=== PATIENT | female | born 1985 | race Two or more races ===

== ENCOUNTER 2021-08-09 21:42 | Inpatient (IN) | payer MEDICAID ==
[~2021-08-09] VITALS: Ht 154.9 cm; Wt 69.4 kg
[2021-08-09] MEDS ORDERED: IOHEXOL-350 100 ML BOTTLE ONE (23:18)
[2021-08-09 23:19] LABS: CLARITY URINE CLEAR (CLEAR); COLOR URINE YELLOW (YELLOW); KETONES URINE 2+ (NEGATIVE); LEUKOCYTE ESTERASE URINE NEGATIVE (NEGATIVE); NITRITE URINE NEGATIVE (NEGATIVE); OCCULT BLOOD URINE 1+ (NEGATIVE); PH URINE 6.5 (4.5-8.0); PROTEIN URINE NEGATIVE (NEGATIVE); SPECIFIC GRAVITY URINE 1.007 (1.005-1.030); UROBILINOGEN URINE 0.2 E.U./dL (0.2-1.0)
[2021-08-09 23:20] LABS: BASOPHILS % 0.1 % (0.0-2.0); HEMATOCRIT. 33.7 % (36.0-48.0); HEMOGLOBIN. 11.6 g/dL (12.0-16.0); LYMPHOCYTES % 16.5 % (20.0-50.0); MEAN CORPUSCULAR HEMOGLOBIN 31.4 pg (28.0-32.0); MEAN CORPUSCULAR VOLUME 91.3 fL (81.0-99.0); MONOCYTES % 5.8 % (2.0-8.0); NEUTROPHILS % 76.6 % (40.0-76.0); PLATELET 232 x1000/uL (130-400); RED BLOOD CELL COUNT 3.69 mill/uL (4.2-5.4); RED CELL DISTRIBUTION WIDTH 12.4 % (11.6-14.6)
[2021-08-09 23:27] LABS: CHLORIDE 105 mEq/L (98-107)
[2021-08-09] MEDS ORDERED: DEXAMETHASONE 10 MG/ML VIAL IV ONE (23:30)
[2021-08-09] MEDS ORDERED: ASPIRIN 325MG TABLET PO ONE (23:30)
[2021-08-09] MEDS ORDERED: DIPHENHYDRAMINE 25MG CAPSULE PO ONE (23:30)
[2021-08-09] MEDS ORDERED: KETOROLAC 15MG/ML VIAL IV ONE (23:30)
[2021-08-09] MEDS ORDERED: PROCHLORPERAZINE MALEATE 10MG TABLET PO ONE (23:30)
[2021-08-09 23:31] LABS: *AMPHETAMINES SCREEN URINE NEGATIVE (NEGATIVE); *BARBITURATES SCREEN URINE NEGATIVE (NEGATIVE); *BENZODIAZEPINES SCREEN URINE NEGATIVE (NEGATIVE); *COCAINE SCREEN URINE NEGATIVE (NEGATIVE)
[2021-08-09 23:32] LABS: CANNABINOID URINE SCREEN NEGATIVE (NEGATIVE); METHADONE URINE SCREEN NEGATIVE (NEGATIVE); OPIATES URINE SCREEN NEGATIVE (NEGATIVE); PHENCYCLIDINE URINE SCREEN NEGATIVE (NEGATIVE)
[2021-08-09 23:32] LABS: ETHANOL BLOOD < 10 mg/dL
[2021-08-09 23:34] LABS: LDL CHOLESTEROL 91 mg/dL (5-100)
[2021-08-09 23:36] LABS: CREATINE KINASE 107 IU/L (26-192)
[2021-08-10] MEDS ORDERED: SODIUM CHLORIDE 0.9% 1,000 ML IV ONE (00:30)
[2021-08-10] MEDS ORDERED: MAGNESIUM/ALUMINUM HYDROXIDE/SIMETHICONE 30ML UDC PO PRN (07:30)
[2021-08-10] MEDS ORDERED: GUAIFENESIN 200MG/10ML SUGAR FREE UDC PO PRN (07:30)
[2021-08-10] MEDS ORDERED: ACETAMINOPHEN 325MG TABLET PO PRN ×2 (07:30)
[2021-08-10] MEDS ORDERED: CLONIDINE 0.1MG TABLET PO PRN (07:30)
[2021-08-10] MEDS ORDERED: ONDANSETRON HCL 4MG/2ML INJ IV PRN (07:30)
[2021-08-10] MEDS: ENOXAPARIN 40MG/0.4ML SYR SUBCUT SCH (08:46)
[2021-08-10 10:30] VITALS: BP 96/56
[2021-08-10 11:21] VITALS: BP 95/56
[2021-08-10 12:00] VITALS: BP 98/52
[2021-08-10] MEDS: KETOROLAC 15MG/ML VIAL IV PRN (14:16)
[2021-08-10 16:00] VITALS: BP 96/53
[2021-08-10 20:00] VITALS: BP 84/45
[2021-08-11] VITALS (8 sets, daily range): BP systolic 83–111; BP diastolic 35–60
[2021-08-11] MEDS: KETOROLAC 15MG/ML VIAL IV PRN ×2 (05:16→12:35)
[2021-08-11] MEDS: ENOXAPARIN 40MG/0.4ML SYR SUBCUT SCH (09:49)
[2021-08-11 13:03] LABS: BASOPHILS % 0.2 % (0.0-2.0); EOSINOPHILS % 1.3 % (0.0-5.0); HEMATOCRIT. 32.7 % (36.0-48.0); HEMOGLOBIN. 11.3 g/dL (12.0-16.0); LYMPHOCYTES % 24.3 % (20.0-50.0); MEAN CORPUSCULAR HEMOGLOBIN 31.2 pg (28.0-32.0); MEAN CORPUSCULAR VOLUME 90.1 fL (81.0-99.0); MEAN PLATELET VOLUME 8.6 fl (7.4-10.4); MONOCYTES % 11.9 % (2.0-8.0); NEUTROPHILS % 62.3 % (40.0-76.0); PLATELET 218 x1000/uL (130-400); RED BLOOD CELL COUNT 3.63 mill/uL (4.2-5.4); RED CELL DISTRIBUTION WIDTH 12.5 % (11.6-14.6)
[2021-08-11 13:33] LABS: CHLORIDE 110 mEq/L (98-107)
[2021-08-11 13:42] LABS: PHOSPHORUS 3.1 mg/dL (2.5-4.9)
[2021-08-11 13:43] LABS: LDL CHOLESTEROL 82 mg/dL (5-100)
[2021-08-11 13:46] LABS: HDL CHOLESTEROL 33 mg/dL (40-59)
[2021-08-11 13:54] LABS: HCG SCREEN NEGATIVE
[2021-08-11 16:49] LABS: FOLIC ACID (FOLATE) SERUM 14.4 ng/mL (>5.38)
[2021-08-11] MEDS: SODIUM CHLORIDE 0.45% 1,000 ML IV SCH ×2 (17:00→17:57)
[2021-08-11] MEDS ORDERED: DEXAMETHASONE 10 MG/ML VIAL IV NR (17:00)
[2021-08-12] VITALS: BP 87/47
[2021-08-12 03:59] VITALS: BP 87/53
[2021-08-12 08:00] VITALS: BP 93/47
[2021-08-12] MEDS: ENOXAPARIN 40MG/0.4ML SYR SUBCUT SCH (08:55)
[2021-08-12 12:00] VITALS: BP 97/52
[2021-08-12] MEDS ORDERED: GADOTERATE MEGLUMINE 5 MMOL/10 ML VIAL IV ONE (15:17)
== END 2021-08-12 14:45 | disposition home or self-care (01) | DRG 54 ==
LOC: ER 21:42 → 8WST 08-10 02:59 → EDBEDREQTM 08-10 03:05 → EDBEDREQDT 08-10 03:05 → EDBEDREQSVC 08-10 03:05 → EDBEDREQ 08-10 03:05 → SUPCPDRO 08-10 07:23 → ENRESERV 08-10 09:09
PROVIDERS: ADMIT Internal Medicine; ATTEND Internal Medicine
DX: G43.109 Migraine with aura, not intractable, without status migrainosus (principal); R20.0 Anesthesia of skin; Z20.822 Contact with and (suspected) exposure to COVID-19; Z86.16 Personal history of COVID-19; Z79.899 Other long term (current) drug therapy; R53.1 Weakness
CPT/HCPCS: 36415; 70496; 70498; 70553; 71045; 72156; 80048; 80053; 80061; 80305; 80320; 81003; 82550; 82607; 82746; 82962; 83605; 83721; 83735; 83880; 84100; 84443; 84484; 84703; 85025; 87426; 93005; 99285; A9577; J1100; J1650; J1885; Q0163; Q0164; Q9967; G0480